=== PATIENT | male | born 1975 | race Caucasian/White ===

== ENCOUNTER → 2017-06-12 | Outpatient (CLI) | payer OTHER ==
[~2017-06-12] MED LIST: AMOX-559 PO; FLUT16SP19 NS
== END ==
LOC: RESP 20:58
PROVIDERS: ATTEND Nurse Practitioner Primary Care
DX: G47.33 Obstructive sleep apnea (adult) (pediatric) (principal); G47.36 Sleep related hypoventilation in conditions classified elsewhere; E66.3 Overweight

== ENCOUNTER → 2018-04-14 | Outpatient (CLI) | payer OTHER ==
[~2018-04-14] MED LIST changes: +BENZ200C15 PO; +LEVO750T27 PO; +PRED20TA6 PO
--- NOTE | 2018-04-14 16:39 | RADIOLOGY IMAGING REPORT ---
FACILITY: [facility] [place] PATIENT NAME: Viet Sommer : 1975 MR: [id number] V: [id number] EXAM DATE: ORDERING PHYSICIAN: DALLIN VELAZQUEZ TECHNOLOGIST: Location: [facility] Patient: Viet Sommer : 1975 Visit/Account:[id number] Date of Sevice: 04/14/2018 CHEST PA AND LAT Provided history: continued cough/sob on antibiotics Additional pertinent history: none Two views obtained COMPARISON STUDIES: No relevant priors FINDINGS: Support lines and tubes: None. Lungs / pleura / leonardo: No infiltrate, effusion or pneumothorax. Heart / mediastinum /vessels: Negative Nodules / masses: None significant Bones / body wall: Small bridging prevertebral spurs lower T-spine. Lower neck / Upper abdomen: Negative IMPRESSION: No acute or significant chronic cardiopulmonary disease. Report Dictated By: Gera Parson MD at 04/14/2018 4:34 PM Report E-Signed By: Gera Parson MD at 04/14/2018 4:35 PM WSN:[id number]
== END ==
LOC: RAD 16:03
PROVIDERS: ATTEND Nurse Practitioner Primary Care
DX: R05 Cough (principal); R06.02 Shortness of breath
CPT/HCPCS: 71046